=== PATIENT | male | born 1970 | race Caucasian/White ===

== ENCOUNTER 2022-11-09 06:20 | Emergency (ER) | payer MEDICAID ==
[~2022-11-09] VITALS: Ht 172.7 cm; Wt 113.4 kg
[2022-11-09 06:45] VITALS: BP 148/86; PULSE 96; RESP 16; TEMP 97; O2SAT 96
[2022-11-09 06:56] VITALS: O2SAT 96
[2022-11-09] MEDS ORDERED: ACETAMINOPHEN 325 MG TAB PO ONE (07:10)
[2022-11-09] MEDS ORDERED: CEPH-588 PO (07:32)
[2022-11-09] MEDS ORDERED: NAPR-1704 PO (07:32)
== END 2022-11-09 07:44 | disposition home or self-care (01) ==
LOC: MED 06:20
DX: L03.116 Cellulitis of left lower limb (principal); F17.290 Nicotine dependence, other tobacco product, uncomplicated; I10 Essential (primary) hypertension; Z98.890 Other specified postprocedural states
CPT/HCPCS: 73630; 99283; Q0092

== ENCOUNTER 2022-12-04 01:30 | Emergency (ER) | payer MEDICAID ==
[~2022-12-04 01:30] MED LIST: CEPH-588 PO; NAPR-1704 PO
== END 2022-12-04 02:50 | disposition left against medical advice (07) ==
LOC: MED 01:30
DX: R51.9 Headache, unspecified (principal); Z53.21 Procedure and treatment not carried out due to patient leaving prior to being seen by health care provider